=== PATIENT | male | born 1950 | race Caucasian/White ===

== ENCOUNTER 2024-02-13 18:32 | Emergency (ER) | payer MEDICARE, SELFPAY ==
--- NOTE | 2024-02-13 18:33 | ED_ITS ---
HPI - Wound/Laceration General Stated Complaint: Left Hand Finger Laceration Time Seen by Provider: 02/13/24 18:48 Source: patient and RN notes reviewed Mode of arrival: ambulatory Limitations: no limitations History of Present Illness HPI narrative: 73-year-old male presents with concern for laceration to the dorsal aspect of the 2nd digit of the left hand. Reports he sliced it on a new surrounding knife about an hour prior to arrival while slicing apples. Patient does take Coumadin. He is up-to-date on his tetanus vaccination Related Data Home Medications Medication Instructions Recorded Confirmed albuterol sulfate 90 mcg/actuation 2 puff inhalation DIRECTED 02/13/24 02/13/24 aerosol inhaler allopurinol 100 mg tablet 100 mg PO DAILY 02/13/24 02/13/24 lisinopril 20 mg tablet 20 mg PO DAILY 02/13/24 02/13/24 meclizine 25 mg tablet 25 mg PO DAILY 02/13/24 02/13/24 metoprolol succinate 25 mg 25 mg PO DAILY 02/13/24 02/13/24 tablet,extended release 24 hr montelukast 10 mg tablet 10 mg PO DAILY 02/13/24 02/13/24 warfarin 2.5 mg tablet 2.5 mg PO DIRECTED 02/13/24 02/13/24 Allergies Allergy/AdvReac Type Severity Reaction Status Date / Time latex Allergy Unknown Other Verified 02/13/24 18:34 Review of Systems Review of Systems: CONSTITUTIONAL: Denies malaise, chills, sweats, or fever. SKIN: Reports laceration to the 2nd digit of the left hand MUSCULOSKELETAL: Denies muscle skeletal pain NEUROLOGIC: Denies numbness, weakness All systems reviewed & are unremarkable except as noted in HPI and below [facility] Family History Family History (Updated 07/11/16 @ 23:56 by DOCTOR UNKNOWN) Father Hypertension, Onset Age: 86 Cerebrovascular accident, Onset Age: 86 Family history of kidney disease, Onset Age: 86 Patient's father is Sibling Patient's sister is in good health, Onset Age: 52 Patient's brother is in good health, Onset Age: 64 Family history of kidney disease, Onset Age: 9 Patient's brother is Mother Family history of Alzheimer's disease Other Family history of alcoholism Family history of gout Family history of transient ischemic attacks Social History Social History Alcohol intake: current Comments At time of signature, agree with nursing past medical, surgical, social and family history. There is no relevant family history pertinent to the presenting complaint Exam Narrative: GENERAL: Well-appearing, well-nourished, and in no acute distress. HEAD: Normocephalic EYES: PERRLA, conjunctivae clear NECK: Supple. CHEST: Speaks in full sentences. No respiratory distress. HEART: Regular rate and rhythm. Normal and equal peripheral pulses. EXTREMITIES: 2nd digit Left hand has normal strength and sensation. 5/5 strength with digit flexion, extension. Range of motion normal. Normal digital cascade with flexion of fingers, median, ulnar and radial nerve intact. Normal sensation of each side of finger. Good capillary refill and radial pulse. Distal capillary refill less than 3 seconds. SKIN: Warn, dry, intact, pink. 3 cm superficial laceration noted to the dorsal aspect of the 2nd digit of the left hand above the D IP joint, not involving the joint NEURO: Alert and oriented x3. PSYCH: Normal mood and affect Course Course Emergency Course: Patient is aware of diagnosis, understands and agrees to treatment plan. Anticipatory guidance given. Patient agrees to follow-up as directed and is aware of reasons to seek care at the emergency department. Portions of this record may have been created with voice recognition software Level of Care: Express Care Visit Vital Signs Vital signs: Reviewed. Procedures Laceration Laceration 1: Time: 18:59 Site: hand Side (If applicable): left Size (cm): 3 Description: linear Depth: simple, single layer Pre-repair: wound explored and irrigated ====== Skin Level ====== Skin layer closed with: dermabond ====== Subcutaneous Layer ====== ====== Muscle Layer ====== ====== Tendon Layer ====== MDM - Wound/Laceration MDM Narrative Medical decision making narrative: Wound explored for foreign body and copious irrigation provided with no evidence of FB. There was no evidence of tendon or nerve lacerations. Anticipatory guidance was provided. Tetanus prophylaxis was not given Differential Diagnosis Differential diagnosis: Likely laceration, abrasion and avulsion of skin Critical Care Time Critical Care Time Critical Care Time: No Discharge Plan Discharge Clinical Impression: Laceration Patient Disposition: Home, Self-Care Condition: Stable Instructions: Laceration (ED) Additional Instructions: Skin adhesive care: -adhesive works like a bandage; do not use antibiotic ointment as it can break down the adhesive -You can shower while the adhesive is on your skin, but do not take a bath or soak or scrub the area for 7-10 days. Dry your skin by patting it gently with a towel. -The adhesive will peel off on its own; usually by 5-10days. If after 10 days, you still have adhesive on you, you can use antibiotic ointment or petroleum jelly to get it off. After you heal, you should protect the scar from the sun. Use sunscreen on the area or wear clothes or a hat that covers the scar. Follow up with your PCP as needed If you have any worsening of symptoms, redness, swelling, fever, or drainage, or any other concerns please follow up with your PCP or go to the ED immediately. Prescriptions: No Action lisinopril 20 mg tablet 20 mg PO DAILY warfarin 2.5 mg tablet 2.5 mg PO DIRECTED allopurinol 100 mg tablet 100 mg PO DAILY meclizine 25 mg tablet 25 mg PO DAILY montelukast 10 mg tablet 10 mg PO DAILY metoprolol succinate 25 mg tablet extended release 24 hr 25 mg PO DAILY albuterol sulfate 90 mcg/actuation HFA aerosol inhaler 2 puff INHALATION DIRECTED Follow-up/Referrals: Jacinto,Subhash Rangel MD [Primary Care Provider] - Time of Disposition: 19:12
[2024-02-13 18:45] VITALS: BP 150/72; PULSE 78; RESP 20; TEMP 36.9; O2SAT 99
== END 2024-02-13 19:27 | disposition home or self-care (01) ==
PROVIDERS: Emergency Provider Nurse Practitioner; PCP Internal Medicine
DX: S61.211A Laceration without foreign body of left index finger without damage to nail, initial encounter (principal); W26.0XXA Contact with knife, initial encounter; Y93.G1 Activity, food preparation and clean up; I25.10 Atherosclerotic heart disease of native coronary artery without angina pectoris; E78.00 Pure hypercholesterolemia, unspecified; I10 Essential (primary) hypertension; I73.9 Peripheral vascular disease, unspecified; J44.9 Chronic obstructive pulmonary disease, unspecified; M19.90 Unspecified osteoarthritis, unspecified site; M10.9 Gout, unspecified; Z79.01 Long term (current) use of anticoagulants
CPT/HCPCS: 12002; 99212; G0463